=== PATIENT | male | born 1995 | race Caucasian/White ===

== ENCOUNTER 2016-08-05 00:27 | Emergency (ER) | payer SELFPAY ==
[~2016-08-05] VITALS: Ht 172.7 cm; Wt 73.8 kg
[2016-08-05 00:34] VITALS: BP 144/72
== END 2016-08-05 00:34 | disposition left against medical advice (07) ==
LOC: EME 00:27
DX: S69.90XA Unspecified injury of unspecified wrist, hand and finger(s), initial encounter (principal); Z53.21 Procedure and treatment not carried out due to patient leaving prior to being seen by health care provider

== ENCOUNTER 2016-08-27 03:22 | Emergency (ER) | payer OTHER ==
[~2016-08-27] VITALS: Ht 172.7 cm; Wt 73.8 kg
[2016-08-27] MEDS ORDERED: MOTRIN800 MG PO (04:10)
[2016-08-27 04:23] VITALS: BP 108/79
== END 2016-08-27 04:24 | disposition home or self-care (01) ==
LOC: EME → EDBD 03:22 → EME 03:22
DX: M25.561 Pain in right knee (principal); G89.11 Acute pain due to trauma; W22.8XXA Striking against or struck by other objects, initial encounter; Z72.0 Tobacco use
CPT/HCPCS: 73564; 99281; 99283